=== PATIENT | male | born 1975 | race Caucasian/White ===

== ENCOUNTER 2018-01-11 20:16 | Emergency (ER) | payer SELFPAY | END 2018-01-11 23:05 | disposition left against medical advice (07) | LOC: FTE 23:05 | DX: Z53.21 Procedure and treatment not carried out due to patient leaving prior to being seen by health care provider (principal) ==

== ENCOUNTER 2018-01-12 06:59 | Inpatient (IN) | payer MEDICAID ==
[2018-01-12 08:52] LABS: ADD UMIC NO; UR ASCORBIC ACID NEGATIVE (NEGATIVE); UR BILIRUBIN (Dip) NEGATIVE (NEGATIVE); UR BLOOD (Dip) NEGATIVE (NEGATIVE); UR CLARITY CLEAR (CLEAR); UR COLOR AMBER (YELLOW); UR GLUCOSE (Dip) NEGATIVE (NEGATIVE); UR KETONES (Dip) NEGATIVE (NEGATIVE); UR LEUKOCYTE ESTERASE (Dip) NEGATIVE Leu/ul (NEGATIVE); UR NITRITE (Dip) NEGATIVE (NEGATIVE); UR SPECIFIC GRAVITY (Dip) 1.024 (1.003-1.030); UR TOTAL PROTEIN (Dip) NEGATIVE (NEGATIVE); UR UROBILINOGEN (Dip) NEGATIVE (NEGATIVE)
[2018-01-12 09:41] LABS: ADD MAN DIFF? NO
[2018-01-12 09:47] LABS: BASOPHILS % 0.2 % (0.0-2.0); EOSINOPHILS % 0.2 % (0.0-7.0); HEMATOCRIT 41.3 % (42.0-52.0); HEMOGLOBIN 14.7 g/dl (14.0-18.0); LYMPHOCYTES # 1.9 10^3/ul (0.8-2.9); LYMPHOCYTES % 14.8 % (15.0-51.0); MEAN CORPUSCULAR HEMOGLOBIN 31.1 pg (29.0-33.0); MEAN CORPUSCULAR HGB CONC 35.6 g/dl (32.0-37.0); MEAN CORPUSCULAR VOLUME 87.3 fl (82.0-101.0); MEAN PLATELET VOLUME 10.1 fl (7.4-10.4); MONOCYTE # 0.8 10^3/ul (0.3-0.9); MONOCYTES % 6.3 % (0.0-11.0); NEUTROPHIL # 9.9 10^3/ul (1.6-7.5); NEUTROPHILS % 78.3 % (39.0-77.0); PLATELET COUNT 223 10^3/UL (140-415); RED BLOOD COUNT 4.73 10^6/ul (4.70-6.10); RED CELL DISTRIBUTION WIDTH 13.4 % (11.5-14.5)
[2018-01-12 09:47] LABS: WHITE BLOOD COUNT 12.6 10^3/ul (4.8-10.8)
[2018-01-12 10:06] LABS: ALANINE AMINOTRANSFERASE 129 IU/L (13-69); ALBUMIN 4.6 g/dl (3.3-4.9); ALBUMIN/GLOBULIN RATIO 1.27; ALKALINE PHOSPHATASE 118 IU/L (42-121); ANION GAP 14 (8-16); ASPARTATE AMINO TRANSFERASE 101 IU/L (15-46); BLOOD UREA NITROGEN 17 mg/dl (7-20); CALCIUM 9.3 mg/dl (8.4-10.2); CARBON DIOXIDE 29 mmol/L (21-31); CHLORIDE 103 mmol/L (97-110); CREATININE 1.08 mg/dl (0.61-1.24); GLUCOSE 128 mg/dl (70-220); LIPASE 54 U/L (23-300); POTASSIUM 3.9 mmol/L (3.5-5.1); SODIUM 142 mmol/L (135-144); TOTAL PROTEIN 8.2 g/dl (6.1-8.1)
[2018-01-12] MEDS ORDERED: NACL 0.9% 3 ML SYG IV (10:30)
[2018-01-12] MEDS ORDERED: BISACODYL (EC) 5 MG TAB PO (10:30)
[2018-01-12] MEDS ORDERED: HYDROCODONE/APAP (5/325) TAB PO (10:30)
[2018-01-12] MEDS ORDERED: LORAZEPAM 2 MG INJ IV (10:30)
[2018-01-12] MEDS ORDERED: ACETAMINOPHEN 325 MG TAB PO ×2 (10:30)
[2018-01-12] MEDS ORDERED: ONDANSETRON 4 MG INJ IV (10:30)
[2018-01-12] MEDS: SODIUM CHLORIDE 0.9% 1L BAG IV* (10:38)
[2018-01-12] MEDS: PIPER-TAZO 3.375 GM IV (PMX) 100 ML IVPB ×4 (10:39→23:58)
[2018-01-12] MEDS: ONDANSETRON 4 MG INJ IV (10:39)
[2018-01-12] MEDS: HYDROmorphONE 0.5 MG/0.5 ML SYG IV ×2 (10:39→21:28)
[2018-01-12 11:26] LABS: LACTIC ACID 1.1 mmol/L (0.5-2.0)
[2018-01-12] MEDS: DEXTROSE 5%-0.45% NACL 1,000 ML IV ×2 (11:31→21:26)
[2018-01-12 13:07] LABS: LACTIC ACID 0.9 mmol/L (0.5-2.0)
[2018-01-12 14:10] LABS: LACTIC ACID 0.7 mmol/L (0.5-2.0)
[2018-01-13] MEDS: DEXTROSE 5%-0.45% NACL 1,000 ML IV ×4 (04:48→21:56)
[2018-01-13 05:03] LABS: ADD MAN DIFF? NO
[2018-01-13 05:11] LABS: WHITE BLOOD COUNT 5.9 10^3/ul (4.8-10.8)
[2018-01-13 05:11] LABS: BASOPHILS % 0.3 % (0.0-2.0); EOSINOPHILS # 0.2 10^3/ul (0.0-0.5); EOSINOPHILS % 2.7 % (0.0-7.0); LYMPHOCYTES # 1.4 10^3/ul (0.8-2.9); MEAN CORPUSCULAR HEMOGLOBIN 30.7 pg (29.0-33.0); MEAN CORPUSCULAR HGB CONC 34.2 g/dl (32.0-37.0); MEAN CORPUSCULAR VOLUME 89.6 fl (82.0-101.0); MONOCYTE # 0.4 10^3/ul (0.3-0.9); MONOCYTES % 6.3 % (0.0-11.0); NEUTROPHIL # 3.9 10^3/ul (1.6-7.5); NEUTROPHILS % 66.4 % (39.0-77.0); PLATELET COUNT 191 10^3/UL (140-415); RED BLOOD COUNT 4.24 10^6/ul (4.70-6.10); RED CELL DISTRIBUTION WIDTH 13.1 % (11.5-14.5)
[2018-01-13] MEDS: PIPER-TAZO 3.375 GM IV (PMX) 100 ML IVPB ×4 (05:25→23:54)
[2018-01-13] MEDS: PANTOPRAZOLE 40 MG INJ IV (05:25)
[2018-01-13] MEDS: HYDROmorphONE 0.5 MG/0.5 ML SYG IV ×2 (05:27→22:16)
[2018-01-13 05:46] LABS: ALANINE AMINOTRANSFERASE 87 IU/L (13-69); ALBUMIN 3.6 g/dl (3.3-4.9); ALBUMIN/GLOBULIN RATIO 1.24; ALKALINE PHOSPHATASE 83 IU/L (42-121); ANION GAP 12 (8-16); ASPARTATE AMINO TRANSFERASE 52 IU/L (15-46); BILIRUBIN,INDIRECT 0.9 mg/dl (0-1.1); BILIRUBIN,TOTAL 0.9 mg/dl (0.2-1.3); BLOOD UREA NITROGEN 11 mg/dl (7-20); CALCIUM 8.4 mg/dl (8.4-10.2); CARBON DIOXIDE 28 mmol/L (21-31); CHLORIDE 106 mmol/L (97-110); GLUCOSE 125 mg/dl (70-220); POTASSIUM 3.8 mmol/L (3.5-5.1); SODIUM 142 mmol/L (135-144); TOTAL PROTEIN 6.5 g/dl (6.1-8.1)
[2018-01-13] MEDS: INFLUENZA VIRUS VACCINE 0.5 ML (DISPENSING) IM* (09:00)
[2018-01-13] MEDS: POLYETHYLENE GLYCOL 17 GM PACKET PO (17:32)
[2018-01-14] MEDS: DEXTROSE 5%-0.45% NACL 1,000 ML IV ×2 (02:09→11:36)
[2018-01-14] MEDS: PIPER-TAZO 3.375 GM IV (PMX) 100 ML IVPB ×2 (06:14→11:24)
[2018-01-14] MEDS: PANTOPRAZOLE 40 MG INJ IV (06:15)
== END 2018-01-14 15:02 | disposition home or self-care (01) | DRG 392 ==
LOC: E/R 06:59 → MS1 10:24
DX: K57.80 Diverticulitis of intestine, part unspecified, with perforation and abscess without bleeding (principal); K92.1 Melena; R74.0 Nonspecific elevation of levels of transaminase and lactic acid dehydrogenase [LDH]
CPT/HCPCS: 74176; 80053; 81003; 83605; 83690; 83735; 85025; 87040; 87086; 96374; 96375; 99285-25